=== PATIENT | female | born 1995 | race Native Hawaiian/Other Pacific Islander ===

== ENCOUNTER 2022-11-18 13:37 | Emergency (ER) | payer OTHER, SELFPAY ==
[2022-11-18 13:40] VITALS: BP 118/73; PULSE 93; RESP 16; TEMP 36.5; O2SAT 100; BMI 19.2
--- NOTE | 2022-11-18 13:44 | DI.RAD.S_ITS ---
PROCEDURE: XR FINGER LT MIN 2V INDICATIONS: poss dislocation TECHNIQUE: AP hand, 2 views of the 3rd finger(s) acquired. COMPARISON: None. FINDINGS: Bones: Comminuted 3rd proximal phalangeal fracture with slight displacement associated soft tissue swelling Soft tissues: No suspicious soft tissue calcifications. IMPRESSION: Comminuted 3rd proximal phalangeal fracture. No dislocation Approved by: Gold Johnston M.D. on 11/18/2022 at 13:50
--- NOTE | 2022-11-18 14:18 | ED_ITS ---
HPI - Extremity Injury (Upper) General Chief Complaint: Extremity Injury, Upper Stated Complaint: poss dislocated lt hand middle finger Time Seen by Provider: 11/18/22 13:44 Source: patient and other Mode of arrival: Ambulatory History of Present Illness HPI narrative: 26-year-old female nonsmoker with noncontributory medical history presents with a chief complaint of pain and swelling of her left middle finger since earlier today. Patient had a leash wrapped around her middle finger when the dog it was attached to ran and pulled on her finger. It was immediately painful and swollen and her significant other made an attempt to reduce what appeared to be a dislocated finger but was unsuccessful at which point they decided to come see us here in the emergency department. She denies any numbness or tingling. She states she has significant pain with any range of motion but is relatively comfortable when not moving or touching it. Related Data Allergies Allergy/AdvReac Type Severity Reaction Status Date / Time No Known Drug Allergies Allergy Verified 11/18/22 13:39 Review of Systems Review of Systems Narrative: GENERAL: Denies chills, fatigue, malaise, fever, sweats. HEENT: Denies sinus pain, ear pain, sore throat, difficulty swallowing, dizziness. RESPIRATORY: Denies dyspnea, cough, wheezing, hemoptysis, sputum. CARDIOVASCULAR: Denies chest pain, palpitations, orthopnea, edema, GASTROINTESTINAL: Denies nausea, vomiting, abdominal pain, diarrhea, constip ation, melena. : Denies dysuria, frequency, incontinence, hematuria, urinary retention. MUSCULOSKELETAL: See HPI SKIN: Denies rash, skin lesions, or other NEUROLOGIC: Denies weakness, headache, numbness, change in speech, confusion, seizures, incoordination. PSYCHIATRIC: No concerning psychosocial issues. 12 point review of systems is negative except for those stated above Patient History Social History Smoking Status: Never smoker Smoking Status: Never smoker Substance Use Type: does not use Exam Narrative Exam Narrative: GEN: AOx3 and in mild distress EYES: Pupils are equal, round, and reactive to light and accommodation. Extraoccular muscles are intact bilaterally. There is no subconjunctival hemorrhage or exudate. CHEST: Lungs are clear to auscultation bilaterally and free of wheezes, rales, or rhonchi. Heart rate is regular rhythm, there are no murmurs, clicks, rubs, or gallops. There is no chest wall tenderness. ABD: Abdomen is soft and nontender. There is no guarding or rebound. Bowel sounds are normal in all 4 quadrants. There is no mass or organomegaly. EXT: Left middle finger with swelling, decreased range of motion secondary to pain, closed, isolated and neurovascularly intact SKIN: Warm, pink, and dry. No erythema or rash Initial Vital Signs Initial Vital Signs: Vital Signs Temperature 97.7 F 11/18/22 13:40 Pulse Rate 93 H 11/18/22 13:40 Respiratory Rate 16 11/18/22 13:40 Blood Pressure 118/73 11/18/22 13:40 Pulse Oximetry 100 11/18/22 13:40 Oxygen Delivery Method Room Air 11/18/22 13:40 Procedures Orthopedic Splinting/Casting Injury #1: Side: left Upper Extremity Injury Location: finger Upper Extremity Immobilizer: ulnar gutter Post splinting neuro exam: intact Post splinting vascular exam: intact Placed by: Nursing Course Orders Ordered: ED Orders 11/18/22 13:44 XR finger LT min 2V Stat Vital Signs Vital signs: Vital Signs - 8 hr 11/18/22 13:40 Temperature 97.7 F Pulse Rate 93 H Respiratory Rate 16 Blood Pressure 118/73 Pulse Oximetry 100 Oxygen Delivery Method Room Air MDM - Extremity Injury (Upper) MDM Narrative Medical decision making narrative: [26] year old patient presents with left middle finger injury Multiple etiologies for patient's symptoms considered including, but not limited to: [Fracture versus dislocation versus other] Primary Historian: patient Imaging reviewed: Complex wedge fracture of proximal phalanx of left middle finger with a few mm of displacement, no angulation or shortening Patient with isolated left middle finger injury results from activities as noted above. This is closed, isolated and neurovascularly intact, x-ray demonstrates fracture of proximal phalanx, no angulation or need for reduction, she is splinted, offered pain control but refuses importance of follow-up with Orthopedics is relayed and she expresses her understanding and agreement with the plan Findings and discharge diagnosis discussed with patient/family followed by meka hazel of understanding Return precautions discussed with patient/family whom verbalize understanding of diagnosis and plan Discharge Plan Departure Patient Disposition: Home Clinical Impression: Fracture of proximal phalanx of finger Instructions: DI for Finger Fracture Activity Restrictions/Additional Instructions: *You have been diagnosed with [left middle finger fracture] *What to do: *Please continue to take your regular medications as directed. [ ] New medication prescriptions sent to your pharmacy: [ ] [ ] New medication written as a paper prescription [x] Tylenol and occasional Motrin for pain *Please follow up with [ Issac] of [facility] in 2-3 days, call for an appointment. Let them know you were seen in the Emergency Department and that we ask that you be seen in follow up. We will electronically transmit a record of today's note if your PCP is in our system *Return to Emergency Department if you should have any new, worsening or concerning symptoms, such as [worsening pain, significant swelling, cold ext remities, numbness, tingling, weakness or other bothersome symptoms Splint Care: Keep splint clean and dry. Elevated affected body part to decrease swelling. OK to use ice pack on the affected body part. Use for 15-20 minutes each time, for 5-6x per day. If you develop worsening pain, numbness, tingling, discoloration of the affected body part, loosen the splint by loosening the UZMA wrap, and either see your doctor for an urgent re-assessment, or return to the Emergency Department. Return to the Emergency Department for any new or worsening symptoms. Referrals: Gopal Davenport MD [Physician] - Miscellaneous,MD Bernarda [Primary Care Provider] - Stand Alone Forms: Patient Portal/API
== END 2022-11-18 14:42 | disposition home or self-care (01) ==
PROVIDERS: Emergency Provider Emergency Medicine
DX: S62.613A Displaced fracture of proximal phalanx of left middle finger, initial encounter for closed fracture (principal); X50.9XXA Other and unspecified overexertion or strenuous movements or postures, initial encounter; Y93.K1 Activity, walking an animal
CPT/HCPCS: 29125; 73140; 99283